=== PATIENT | male | born 1985 | race Caucasian/White ===

== ENCOUNTER 2022-10-20 15:37 | Emergency (ER) | payer BC, SELFPAY ==
[2022-10-20] VITALS (28 sets, daily range): BP systolic 104–130; BP diastolic 57–78; PULSE 60–93; RESP 10–25; TEMP 37.2; O2SAT 93–100; BMI 26.9
--- NOTE | 2022-10-20 15:40 | DI.RAD.S_ITS ---
PROCEDURE: XR CHEST 1V INDICATIONS: trauma TECHNIQUE: One view of the chest was acquired. COMPARISON: None. FINDINGS: Surgical changes and devices: None. Lungs and pleura: Lungs are clear. No pleural effusions or pneumothorax. Mediastinum: Mediastinal contours appear normal. Heart size is normal. Bones and chest wall: No suspicious bony lesions. Overlying soft tissues appear unremarkable. IMPRESSION: No radiographic evidence of acute chest trauma. Dictated by: Lissette Wright M.D. on 10/20/2022 at 15:32 Approved by: Lissette Wright M.D. on 10/20/2022 at 15:34
--- NOTE | 2022-10-20 15:40 | DI.RAD.S_ITS ---
PROCEDURE: XR PELVIS 1-2V INDICATIONS: trauma TECHNIQUE: One view(s) of the pelvis acquired. COMPARISON: None. FINDINGS: Bones: Possible minimally displaced avulsion fracture off the right superolateral acetabulum. No other fractures. Pelvic rings are intact. Normal bone alignment.. No suspicious bony lesions. Soft tissues: Visualized bowel gas pattern is normal. No suspicious soft tissue calcifications. IMPRESSION: 1. Possible right superior acetabular rim fracture. 2. No other significant pelvic fractures. Dictated by: Lissette Wright M.D. on 10/20/2022 at 15:34 Approved by: Lissette Wright M.D. on 10/20/2022 at 15:35
--- NOTE | 2022-10-20 15:41 | DI.CT.S_ITS ---
PROCEDURE: CT CERVICAL SPINE WO CON INDICATIONS: Trauma TECHNIQUE: Noncontrast 3 mm thick sections acquired from the skull base to the T4 level. Sagittal and coronal reformats were then constructed. For radiation dose reduction, the following was used: automated exposure control, adjustment of mA and/or kV according to patient size. COMPARISON: None. FINDINGS: Image quality: Excellent. Bones: No fractures or dislocations. Mild disc and endplate degeneration at C5-6. Visualized superior ribs are intact. Soft tissues: Prevertebral soft tissues are normal in thickness. No paravertebral hematomas. No apical pneumothoraces. Mild paraseptal emphysematous changes at the lung apices. IMPRESSION: No CT evidence of acute cervical spine trauma. Dictated by: Lissette Wright M.D. on 10/20/2022 at 15:39 Approved by: Lissette Wright M.D. on 10/20/2022 at 15:44
--- NOTE | 2022-10-20 15:41 | DI.CT.S_ITS ---
PROCEDURE: CT HEAD/BRAIN WO CON INDICATIONS: Trauma TECHNIQUE: Noncontrast 4.5 mm thick angled axial sections acquired from the foramen magnum to the vertex, with coronal and sagittal reformats. For radiation dose reduction, the following was used: automated exposure control, adjustment of mA and/or kV according to patient size. COMPARISON: None. FINDINGS: Image quality: Excellent. CSF spaces: Basal cisterns are patent. No extra-axial fluid collections. Ventricles are normal in size and shape. Brain: No midline shift. No intracranial masses or hemorrhage. Tamez-white matter interface is normal. Skull and face: Calvarium and visualized facial bones are intact, without suspicious lesions. Sinuses: Visualized sinuses and mastoids are clear. IMPRESSION: 1. No CT evidence of acute intracranial trauma. 2. No significant soft tissue injury or underlying fracture. Dictated by: Lissette Wright M.D. on 10/20/2022 at 15:36 Approved by: Lissette Wright M.D. on 10/20/2022 at 15:39
--- NOTE | 2022-10-20 15:43 | ED_ITS ---
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 hours if needed for severe pain Motrin 600 mg every 6 hours if needed for [id number] pain *Follow up with your primary care provider in 2-3 days or call [phone] *Return to ER if you should have persistent vomiting increased confusion increasing pain [or] any new, worsening or concerning symptoms CONTROLLED SUBSTANCE DISCHARGE (Narcotoic/benzodiazepine/Flexeril/Phenergan) 1. You have been prescribed narcotic medications, it does have acetaminophen/Tylenol/paracetamol in it, DO NOT TAKE MORE THAN 4,00mg in 24 hours of Tylenol. TRAMADOL DOES NOT CONTAIN TYLENOL 2. Please understand that we cannot provide further refills of narcotics, benzodiazepines or controlled substances through the ED and her pain management will need to be through your provider. 3. While on these medications you cannot drive or operate heavy machinery. 4. You cannot sign legal documents or perform any duties such as this. 5. As long as you're taking opiate pain medications he should also be taking a stool softener such as Colace, Dulcolax, MiraLAX or prune juice, to help avoid constipation. Prescriptions: New hydrocodone-acetaminophen 5-325 mg tablet 1 tab PO Q6H PRN (Reason: pain) Qty: 10 0RF Stand Alone Forms: Patient Portal/API
[2022-10-20 15:51] LABS: Add Manual Diff / Slide Review NO; Basophils Absolute Auto 0 /uL (0-100); Basophils Percent Auto 0.3 % (0-2); Eosinophils Absolute Auto 0 /uL (0-450); Eosinophils Percent Auto 0.2 % (2-4); Hematocrit 40.6 % (41-53); Hemoglobin 13.7 g/dL (13.5-17.5); Lymphocytes Absolute Auto 1800 /uL (1100-4500); Lymphocytes Percent Auto 19.9 % (25-40); Mean Corpuscular HGB Conc 33.8 % (30-36); Mean Corpuscular Hemoglobin 30.1 PG (26-34); Mean Corpuscular Volume 89.2 fL (80-100); Monocytes Absolute Auto 400 /uL (0-900); Monocytes Percent Auto 4.9 % (3-14); Neutrophils Absolute Auto 6600 /uL (1500-7000); Neutrophils Percent Auto 74.7 % (50-75); Platelet Count 301 X10^3/uL (150-400); Red Blood Cell Count 4.56 X10^6/uL (4.5-5.9); Red Cell Distribution Width 13.4 % (11.6-14.8); White Blood Cell Count 8.8 X10^3/uL (4.5-11.0)
[2022-10-20 15:57] LABS: Prothrombin Time 10.9 SECONDS (10.1-12.7)
[2022-10-20 15:59] LABS: PTT Partial Thromboplastin Tim 26 SECONDS (26-36)
[2022-10-20 16:09] LABS: Alanine Aminotransferase 43 IU/L (<50); Albumin 4.3 g/dL (3.5-5.0); Albumin Globulin Ratio 1.6 (1.0-2.8); Alkaline Phosphatase 66 U/L (38-126); Aspartate Aminotransferase 50 IU/L (17-59); Bilirubin Total 0.4 mg/dL (0.2-1.3); Blood Urea Nitrogen 17 mg/dL (9-20); Calcium 9.1 mg/dL (8.4-10.2); Carbon Dioxide 30 mmol/L (22-32); Chloride 102 mmol/L (98-107); Creatine Kinase 907 U/L (55-170); Estimated Glomerular Filt Rate > 60 mL/min (>60); Ethanol (ETOH) < 10 mg/dL; Globulin 2.7 g/dL (1.7-4.1); Glucose 97 mg/dL (70-100); HEMOLYSIS < 15 (0-50); Lipase 51 U/L (23-300); Potassium 3.2 mmol/L (3.4-5.1); Sodium 138 mmol/L (137-145)
[2022-10-20 16:19] LABS: Troponin I < 0.012 ng/mL (0.01-0.034)
[2022-10-20 16:28] LABS: Lactate (Lactic Acid) 0.9 mmol/L (0.7-2.1)
[2022-10-20] MEDS: TET,DIPH,PERTUSS(ACELL),VAC/PF 0.5 ML SYRINGE IM (16:29)
--- NOTE | 2022-10-20 16:50 | PC.NURSE ---
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 Upon doing so there is pin point scattered abrasion on top of his right hand. Patient also has 1cm long .25cm wide laceration across top knuckle on 5th digit on left hand. All are open to air and without any drainage. Lacerations on left 4th and 5th digit wwound cleansed and left open to air at this time.
--- NOTE | 2022-10-20 17:12 | DI.CT.S_ITS ---
PROCEDURE: CT CHEST ABD PEL W CON INDICATIONS: trauma TECHNIQUE: After the administration of intravenous contrast, 5 mm thick sections acquired from the lung apices to the symphysis. 2.5 mm thick coronal and sagittal reformats were acquired. Additional 7 mm thick coronal maximum intensity projection (MIP) reformats acquired through the lungs. Optional 10-minute delayed imaging may be performed from the kidneys to the bladder. For radiation dose reduction, the following was used: automated exposure control, adjustment of mA and/or kV according to patient size. COMPARISON: None. FINDINGS: Image quality: Excellent. CHEST: Lungs: No pulmonary contusions or lacerations. Minor bibasilar gravitational changes. No pleural effusion. No acute airspace opacities. No pneumothorax or hemothorax. Central and peripheral airways appear patent and normal in caliber. Mediastinum: No mediastinal hematomas. Heart size is normal. No pericardial effusion. Thoracic aorta and pulmonary arteries demonstrate normal size and enhancement. No mediastinal or hilar adenopathy. Esophagus is normal in caliber. No hiatal hernia. Chest wall: No rib fractures. No subcutaneous emphysema. No axillary or supraclavicular adenopathy. Thyroid gland has a normal CT appearance. ABDOMEN: Solid organs: Liver is normal in size and enhancement, without lacerations. Gallbladder is normal. Biliary system is non-dilated. Pancreas enhances normally, without transection. Spleen is normal in size and enhancement, without lacerations. No adrenal hematomas. Both kidneys enhance normally, without hydronephrosis or lacerations. Peritoneum and bowel: No free fluid or air. No interloop fluid or mesenteric hematoma. Unenhanced bowel loops demonstrate normal wall thickness and caliber. Nodes and vessels: No retroperitoneal or mesenteric adenopathy. Aorta and inferior vena cava are normal in size and enhancement. No retroperitoneal hematoma. Miscellaneous: No ventral hernias. PELVIS: Genitourinary: Urinary bladder is intact. Normal wall thickness. No stones. Miscellaneous: No inguinal hernias or adenopathy. No pelvic hematoma. Bones: There is a small avulsion fracture off the right lateral acetabular rim of uncertain chronicity. There is no overlying soft tissue inflammation or hematoma. Pelvis and vertebral bodies are normal. No visible rib fractures. IMPRESSION: 1. Avulsion fracture of uncertain chronicity off the right lateral acetabulum. Correlate with point tenderness. 2. No other evidence of trauma to the chest, abdomen, or pelvis. Dictated by: Lissette Wright M.D. on 10/20/2022 at 17:20 Approved by: Lissette Wright M.D. on 10/20/2022 at 17:29
--- NOTE | 2022-10-20 19:00 | PC.NURSE ---
Pt ambulated with no problem. Steady on feet. Denied lightheadedness, dizziness and chest pain. Provider made aware.
[2022-10-20] MEDS: KETOROLAC 30 MG/ML VIAL 15 MG IV (19:10)
[2022-10-20] MEDS: HYDROCODONE/ACET 5/325 PREPACK 1 BOTTLE MISC (19:10)
== END 2022-10-20 19:32 | disposition home or self-care (01) ==
PROVIDERS: Emergency Medicine; Emergency Provider Emergency Medicine
DX: S09.90XA Unspecified injury of head, initial encounter (principal); S32.401A Unspecified fracture of right acetabulum, initial encounter for closed fracture; M54.2 Cervicalgia; V86.56XA Driver of dirt bike or motor/cross bike injured in nontraffic accident, initial encounter; Z23 Encounter for immunization
CPT/HCPCS: 36415; 70450; 71045; 71260; 72125; 72170; 74177; 80053; 80320; 82550; 83605; 83690; 84484; 85025; 85610; 85730; 86850; 86900; 86901; 90471; 93005; 93010; 96374; 99285; 99291; 90715; J1885